=== PATIENT | male | born 1995 | race Caucasian/White ===

== ENCOUNTER 2023-08-03 07:06 | Emergency (ER) | payer MEDICAID ==
[~2023-08-03] VITALS: Ht 172.7 cm; Wt 70.0 kg
[2023-08-03 07:26] VITALS: O2SAT 100
[2023-08-03 07:51] LABS: CHLORIDE 106 mEq/L (98-107); POTASSIUM 4.3 mEq/L (3.5-5.1); SODIUM 138 mEq/L (136-145)
[2023-08-03 07:52] LABS: CALCIUM 9.5 mg/dL (8.7-10.4); CARBON DIOXIDE 28 mEq/L (21-32)
[2023-08-03 07:57] LABS: GLUCOSE 115 mg/dL (70-105); UREA NITROGEN BLOOD 11 mg/dL (9-23)
[2023-08-03 08:11] LABS: BASOPHILS % 0.5 % (0.0-2.0); EOSINOPHILS % 2.6 % (0.0-5.0); HEMATOCRIT. 42.8 % (42.0-52.0); HEMOGLOBIN. 14.4 g/dL (14.0-18.0); LYMPHOCYTES % 25.1 % (20.0-50.0); MEAN CORPUSCULAR HEMOGLOBIN 29.8 pg (28.0-32.0); MEAN CORPUSCULAR HGB CONC 33.5 g/dL (31.0-37.0); MEAN CORPUSCULAR VOLUME 88.8 fL (80.0-94.0); MEAN PLATELET VOLUME 10.6 fl (7.4-10.4); MONOCYTES % 7.8 % (2.0-8.0); PLATELET 202 x1000/uL (130-400); RED BLOOD CELL COUNT 4.82 mill/uL (4.7-6.1); RED CELL DISTRIBUTION WIDTH 13.9 % (11.6-14.6)
[2023-08-03] MEDS: KETOROLAC 60MG/2ML VIAL IM ONE (09:32)
[2023-08-03 10:09] LABS: CLARITY URINE CLEAR (CLEAR); COLOR URINE YELLOW (YELLOW); GLUCOSE URINE NEGATIVE (NEGATIVE); KETONES URINE NEGATIVE (NEGATIVE); LEUKOCYTE ESTERASE URINE NEGATIVE (NEGATIVE); NITRITE URINE NEGATIVE (NEGATIVE); OCCULT BLOOD URINE NEGATIVE (NEGATIVE); PROTEIN URINE NEGATIVE (NEGATIVE); SPECIFIC GRAVITY URINE 1.028 (1.005-1.030); UROBILINOGEN URINE 0.2 E.U./dL (0.2-1.0)
[2023-08-03] MEDS ORDERED: AMOX1TAB16 MT (10:50)
[2023-08-03] MEDS ORDERED: METR-167 MT (10:50)
[2023-08-03] MEDS: METRONIDAZOLE 500MG TABLET PO ONE (10:50)
[2023-08-03] MEDS: AMOXICILLIN/POTASSIUM CLAVULANATE 875/125MG TAB PO ONE (10:50)
[2023-08-03 11:08] VITALS: BP 135/75; PULSE 60; RESP 16; TEMP 98.5
== END 2023-08-03 11:13 | disposition home or self-care (01) ==
LOC: ER 07:06
DX: R10.32 Left lower quadrant pain (principal)
CPT/HCPCS: 99285; 74176; 80048; 81003; 83690; 85025; 36415; 96372; J1885

== ENCOUNTER 2024-05-28 14:04 | Emergency (ER) | payer MEDICAID ==
[~2024-05-28] VITALS: Ht 167.6 cm; Wt 80.0 kg
[~2024-05-28 14:04] MED LIST: AMOX1TAB16 MT; METR-167 MT
[2024-05-28 14:12] VITALS: O2SAT 100
[2024-05-28 14:43] LABS: CARBON DIOXIDE 29 mEq/L (21-32); CHLORIDE 103 mEq/L (98-107); POTASSIUM 4.5 mEq/L (3.5-5.1); SODIUM 139 mEq/L (136-145)
[2024-05-28 14:44] LABS: BASOPHILS % 0.6 % (0.0-2.0); CALCIUM 9.8 mg/dL (8.7-10.4); EOSINOPHILS % 2.7 % (0.0-5.0); HEMATOCRIT. 45.4 % (42.0-52.0); HEMOGLOBIN. 15.2 g/dL (14.0-18.0); LYMPHOCYTES % 20.4 % (20.0-50.0); MEAN CORPUSCULAR HEMOGLOBIN 29.5 pg (28.0-32.0); MEAN CORPUSCULAR HGB CONC 33.5 g/dL (31.0-37.0); MEAN CORPUSCULAR VOLUME 88.2 fL (80.0-94.0); MONOCYTES % 8.2 % (2.0-8.0); NEUTROPHILS % 68.1 % (40.0-76.0); PLATELET 211 x1000/uL (130-400); RED BLOOD CELL COUNT 5.15 mill/uL (4.7-6.1); RED CELL DISTRIBUTION WIDTH 13.4 % (11.6-14.6); WHITE BLOOD COUNT 6.7 x1000/uL (4.5-11.0)
[2024-05-28 14:49] LABS: CREATININE 1.1 mg/dL (0.6-1.3); GLUCOSE 89 mg/dL (70-105); UREA NITROGEN BLOOD 11 mg/dL (9-23)
[2024-05-28 15:02] LABS: CLARITY URINE CLEAR (CLEAR); COLOR URINE YELLOW (YELLOW); GLUCOSE URINE NEGATIVE (NEGATIVE); KETONES URINE 1+ (NEGATIVE); LEUKOCYTE ESTERASE URINE NEGATIVE (NEGATIVE); NITRITE URINE NEGATIVE (NEGATIVE); OCCULT BLOOD URINE NEGATIVE (NEGATIVE); PH URINE 6.5 (4.5-8.0); PROTEIN URINE NEGATIVE (NEGATIVE); SPECIFIC GRAVITY URINE 1.016 (1.005-1.030)
[2024-05-28] MEDS: ACETAMINOPHEN 325MG TABLET PO STA (15:18)
[2024-05-28] MEDS: ONDANSETRON 4MG ODT PO STA (15:19)
[2024-05-28] MEDS ORDERED: TOPUD PO (16:02)
[2024-05-28 16:19] VITALS: BP 123/83; PULSE 76; RESP 18; TEMP 37.1; O2SAT 98
[2024-05-28 16:27] LABS: ALANINE AMINOTRANSFERASE 20 IU/L (10-49); ALBUMIN 4.6 g/dL (3.2-4.8); ASPARTATE AMINOTRANSFERASE 20 IU/L (<34); BILIRUBIN DIRECT 0.2 mg/dL (<=3.0); BILIRUBIN TOTAL 0.6 mg/dL (0.1-1.0); PROTEIN TOTAL 7.9 g/dL (6.0-8.3)
== END 2024-05-28 16:25 | disposition home or self-care (01) ==
LOC: ER 14:04
DX: R10.10 Upper abdominal pain, unspecified (principal)
CPT/HCPCS: 99284; 74176; 80076; 80048; 81003; 83690; 85025; 36415; Q0162